=== PATIENT | female | born 1985 | race Caucasian/White ===

== ENCOUNTER 2017-08-16 08:03 | Inpatient (IN) | payer OTHER ==
[~2017-08-16] VITALS: Ht 167.6 cm; Wt 106.8 kg
[~2017-08-16 08:03] MED LIST: METHADONE 22 MG/1 ML PO; METHADONE10 MG PO; PERCOCET 5/31 TABLET PO
[2017-08-16 08:38] LABS: HEMATOCRIT 43.5 % (36.0-46.0); HEMOGLOBIN 14.5 G/DL (11.9-15.5); MCH 32.3 PG (29.0-34.0); MCHC 33.3 G/DL (30.0-36.0); MCV 96.9 FL (83-99); PLATELET COUNT 183 K/uL (156-360); RBC DIS.WIDTH-CV 13.1 % (11.8-14.6); RBC DIS.WIDTH-SD 46.6 % (39-53); RED BLOOD COUNT 4.49 M/uL (3.80-5.20); WHITE BLOOD COUNT 8.7 K/uL (4.1-10.2)
[2017-08-16 08:41] LABS: APPEARANCE CLOUDY ((CLEAR)); BILIRUBIN NEGATIVE; BLOOD SMALL; COLOR AMBER ((YELLOW)); GLUCOSE (STRIP) NEGATIVE; KETONES NEGATIVE; LEUKOCYTES SMALL; NITRITE NEGATIVE; PROTEIN (STRIP) 30; SPECIFIC GRAVITY 1.027 (1.000-1.030)
[2017-08-16 08:55] LABS: CHLORIDE 105 mEq/L (99-109); POTASSIUM 3.6 mEq/L (3.7-5.4); SODIUM 141 mEq/L (136-147)
[2017-08-16 08:57] LABS: GLUCOSE 103 mg/dL (70-99)
[2017-08-16 09:00] LABS: CREATININE 0.8 mg/dL (0.6-1.3); GFR ESTIMATE (CALCULATED) > 59 mL/min/
[2017-08-16 09:01] LABS: EPITHELIAL CELLS 3+ /HPF; RED BLOOD CELLS RARE /HPF (0-5); WHITE BLOOD CELLS RARE /HPF (0-5)
[2017-08-16 09:01] LABS: UREA NITROGEN (BUN) 8 mg/dL (9-23)
[2017-08-16 09:02] LABS: AMORPHOUS URATES CRYSTALS 1+; BACTERIA 1+ /HPF; MUCUS NONE SEEN /LPF; UCUL ADDED? NO
[2017-08-16 09:08] LABS: QUANTITATIVE HCG < 4.0 MIU/ML
[2017-08-16 10:18] LABS: AMYLASE 66 IU/L (1-118)
[2017-08-16 10:20] LABS: TOTAL PROTEIN 6.9 g/dL (6.4-8.3)
[2017-08-16 10:21] LABS: TOTAL BILIRUBIN 0.3 mg/dL (0.0-1.0)
[2017-08-16 10:22] LABS: ALKALINE PHOSPHATASE 128 IU/L (3-129)
[2017-08-16 10:25] LABS: AST (GOT) 62 IU/L (2-34); DIRECT BILIRUBIN 0.1 mg/dL (0.0-0.3)
[2017-08-16 10:26] LABS: ALT (GPT) 100 IU/L (3-49); LIPASE 133 U/L (1.0-51.0)
[2017-08-16 12:51] LABS: TRIGLYCERIDES 181 MG/DL (Normal: <150)
[2017-08-16 16:14] VITALS: BP 110/69
[2017-08-16 22:50] VITALS: BP 98/59
[2017-08-17 06:45] LABS: BASOPHIL (%) 0.3 % (0-1); EOSINOPHIL (%) 1.3 % (0-5); EOSINOPHIL COUNT 0.1 K/uL (0-0.3); HEMATOCRIT 36.5 % (36.0-46.0); IMMATURE GRANULOCYTE (%) 0.3 % (0.0-0.7); LYMPHOCYTE (%) 37.2 % (15-42); LYMPHOCYTE COUNT 1.5 K/uL (1.0-2.8); MCH 31.3 PG (29.0-34.0); MCHC 31.8 G/DL (30.0-36.0); MCV 98.4 FL (83-99); MONOCYTE (%) 9.1 % (3-12); MONOCYTE COUNT 0.4 K/uL (0-0.8); NEUTROPHIL (%) 51.8 % (45-76); NEUTROPHIL COUNT 2.1 K/uL (1.8-6.4); PLATELET COUNT 137 K/uL (156-360); RBC DIS.WIDTH-CV 13.2 % (11.8-14.6); RBC DIS.WIDTH-SD 47.7 % (39-53); RED BLOOD COUNT 3.71 M/uL (3.80-5.20)
[2017-08-17 06:49] LABS: HEMOGLOBIN 11.6 G/DL (11.9-15.5)
[2017-08-17 06:53] LABS: ALBUMIN 3.1 G/DL (3.2-4.8); ALKALINE PHOSPHATASE 88 IU/L (3-129); ALT (GPT) 48 IU/L (3-49); AST (GOT) 27 IU/L (2-34); CHLORIDE 107 MEQ/L (99-109); CREATININE 0.6 MG/DL (0.6-1.3); GFR ESTIMATE (CALCULATED) > 59 mL/min/; GLUCOSE 87 mg/dL (70-99); LIPASE 201 U/L (1.0-51.0); SODIUM 141 MEQ/L (136-147); TOTAL BILIRUBIN 0.4 MG/DL (0.0-1.0); TOTAL PROTEIN 4.8 G/DL (6.4-8.3); UREA NITROGEN (BUN) 9 mg/dL (9-23)
[2017-08-17 07:05] LABS: POTASSIUM 4.5 MEQ/L (3.7-5.4)
[2017-08-17 07:17] VITALS: BP 111/71
[2017-08-17 07:45] VITALS: BP 111/71
[2017-08-17 16:40] VITALS: BP 99/52
[2017-08-17 23:05] VITALS: BP 91/53
[2017-08-18 06:51] LABS: HEMATOCRIT 33.5 % (36.0-46.0); HEMOGLOBIN 11.1 G/DL (11.9-15.5); MCH 31.7 PG (29.0-34.0); MCHC 33.1 G/DL (30.0-36.0); MCV 95.7 FL (83-99); PLATELET COUNT 136 K/uL (156-360); RBC DIS.WIDTH-CV 12.9 % (11.8-14.6); WHITE BLOOD COUNT 3.5 K/uL (4.1-10.2)
[2017-08-18 07:36] LABS: ALBUMIN 3.1 G/DL (3.2-4.8); ALKALINE PHOSPHATASE 83 IU/L (3-129); ALT (GPT) 37 IU/L (3-49); AST (GOT) 21 IU/L (2-34); CHLORIDE 106 MEQ/L (99-109); CREATININE 0.5 MG/DL (0.6-1.3); GFR ESTIMATE (CALCULATED) > 59 mL/min/; GLUCOSE 72 mg/dL (70-99); LIPASE 83 U/L (1.0-51.0); POTASSIUM 4.3 MEQ/L (3.7-5.4); SODIUM 141 MEQ/L (136-147); TOTAL PROTEIN 4.7 G/DL (6.4-8.3); UREA NITROGEN (BUN) 6 mg/dL (9-23)
[2017-08-18 07:40] LABS: TOTAL BILIRUBIN 0.6 MG/DL (0.0-1.0)
[2017-08-18 08:15] VITALS: BP 111/77
[2017-08-18 08:45] VITALS: BP 111/77
[2017-08-18] MEDS ORDERED: CEFTIN500 MG PO (11:07)
== END 2017-08-18 14:30 | disposition home or self-care (01) | DRG 439 ==
LOC: EME 08:03 → EDOF 11:14 → 5EAST 11:14 → ENRESERV 11:15 → 5EAST 12:31
PROVIDERS: Internal Medicine Gastroenterology; Nurse Practitioner Adult Health; Nurse Practitioner Family
DX: K85.90 Acute pancreatitis without necrosis or infection, unspecified (principal); F17.210 Nicotine dependence, cigarettes, uncomplicated; K21.9 Gastro-esophageal reflux disease without esophagitis; F11.20 Opioid dependence, uncomplicated; E87.6 Hypokalemia; N39.0 Urinary tract infection, site not specified; Z79.899 Other long term (current) drug therapy; K80.20 Calculus of gallbladder without cholecystitis without obstruction; M54.5 Low back pain
CPT/HCPCS: 74176; 76705; 80048; 80053; 80076; 81003; 82150; 83690; 84478; 84702; 85025; 85027; 87086; 99281; 99285; C9113; J0696; J1650; J1885; J2405; J7030; J7042